=== PATIENT | female | born 1990 | race African-American/Black ===

== ENCOUNTER 2019-02-08 02:50 | Inpatient (IN) | payer BC, OTHER ==
[2019-02-08 04:28] LABS: INR 0.93 (0.83-1.09)
[2019-02-08 04:31] LABS: ACTIVATED PTT 27.3 SECONDS (25.2-36.5)
[2019-02-08 04:33] VITALS: BMI 37.9
[2019-02-08 04:39] LABS: BLOOD UREA NITROGEN 6.3 mg/dL (7-18); CREATININE 0.5 mg/dL (0.55-1.3); POTASSIUM 3.9 mmol/L (3.5-5.1)
[2019-02-08] MEDS ORDERED: FENTANYL/BUPIVACAINE/NS/PF - PCEA - 50 ML DISP.SYRIN EP ONE ×2 (04:49→09:28)
[2019-02-08] MEDS ORDERED: OXYTOCIN 20 UNITS in 0.9% NS 20 UNIT/1,000 ML INFUS.BAG IV ONE ×2 (04:59→12:05)
[2019-02-08] MEDS ORDERED: ELECTROLYTE-148 SOLN 1,000 ML IV SCH (05:15)
[2019-02-08 05:21] LABS: BASO % 0.1 % (0-2.0); EOS % 0.1 % (0-4.5); HEMATOCRIT 39.4 % (32.4-45.2); HEMOGLOBIN 13.3 GM/dL (10.7-15.3); LYMPH % 16.1 % (8-40); MCH 29.8 pg (25.7-33.7); MCHC 33.9 g/dl (32.0-36.0); MEAN CELL VOLUME 87.9 fl (80-96); MEAN PLT VOLUME 7.7 fl (7.5-11.1); MONO % 7.1 % (3.8-10.2); NEUT % 76.6 % (42.8-82.8); PLATELET COUNT 196 K/MM3 (134-434); RBC 4.48 M/mm3 (3.60-5.2); RDW 14.1 % (11.6-15.6); WHITE BLOOD COUNT 6.7 K/mm3 (4.0-10.0)
[2019-02-08] MEDS ORDERED: LIDO 2%/EPI 1:200000 PRESRVFRE (20 ML SDVIAL) ONE ×2 (05:28→06:17)
[2019-02-08] MEDS ORDERED: NALOXONE HCL 0.4 MG/ML VIAL IVPUSH PRN (05:49)
[2019-02-08] MEDS ORDERED: FENTANYL/BUPIVACAINE/NS/PF - PCEA - 50 ML DISP.SYRIN EP SCH (06:00)
[2019-02-08] MEDS ORDERED: BUPIVACAINE HCL/PF 2.5 MG/ML - 30 ML VIAL IJ ONE ×2 (06:38→08:49)
--- NOTE | 2019-02-08 07:07 | HP ---
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: Alzheimer's, CVA, Dementia, Migraine, Multiple Sclerosis, Peripheral Neuropathy, Parkinson's, Seizure, Syncope, TIA, Vertigo, Other Cardiovascular: No: AFIB, Aneurysm, Aortic Insufficiency, Aortic Stenosis, CAD, CHF, Deep Vein Thrombosis, HTN, Hyperlipdemia, DC, Mitral Insufficiency, Mitral Stenosis, Murmur, Pulmonary Hypertension, Other Pulmonary: No: Asthma, Bronchitis, Cancer, COPD, O2 Dependent, Pneumonia, Previously Intubated, Pulmonary Embolus, Pulmonary Fibrosis, Sleep Apnea, Other Gastrointestinal: No: Ascites, Cancer, Constipation, Crohn's Disease, Diverticulitis, Diverticulosis, Esophageal Varices, Gastritis, GERD, GI Bleed, Hemorrhoids, Hiatal Hernia, Inflamatory Bowel Disease, Irritable Bowel Disease, Pancreatitis, Peptic Ulcer Disease, Ulcerative Colitis, Other Hepatobiliary: No: Cirrhosis, Cholelithiasis, Cholecystitis, Choledocholithiasis , Hepatitis A, Hepatitis B, Hepatitis C, Other Renal/: No: Renal Failure, Renal Inusuff, BPH, Cancer, Hematuria, Hemodialysis , Neurogenic Bladder, Renal Calculi, UTI, Other Reproductive: No: Ectopic , Endometriosis, Fibroids, PID, Polycystic Ovary Syndrome, Postmenopausal, Other ...: 2 ...Para: 1 ...Term: 1 ... Weeks Gestation by Dates: 39 ...EDC by Sono: 02/09/19 Heme/Onc: No: Anemia, B12 Deficiency, Bleeding Disorder, Cancer, Current Chemotherapy, Current Radiation Therapy, Hemochromatosis, Hypercoaguable State, Myeloproliferative Synd, Sickle Cell Disease, Sickle Cell Trait, Thrombocytopenia, Other Psych: No: Addictions, Anxiety, Bipolar, Depression, Panic, Psychosis, Schizophrenia, Other Musculoskeletal: No: Bursitis, Chronic low back pain, Hemiparesis, Hemiplegia, Osteoarthritis, Paraplegia, Other Rheumatology: No: Fibromyalgia, Gout, Lupus, Rheumatoid Arthritis, Sarcoidosis, Vasculitis, Other ENT: No: Allergic Rhinitis, Sinusitis, Other Endocrine: No: Yossi's Disease, Houston's Disease, Diabetes Insipidus, Diabetes Mellitus, Hyperparathyroidism, Hyperthyroidism, Hypothyroidism, Osteopenia, SIADH, Other Dermatology: No: Basal Cell, Cellulitis, Eczema, Melanoma, Psoriasis, Squamous Cell, Other - Past Surgical History Past Surgical History: No: None, AAA Repair, AICD, Amputation, Appendectomy, Arthrosocopy, AV Fistula/Graft, Bariatric Surgery, Breast Biopsy, Bypass, CABG, Carotid Endarterectomy, Cataract Removal, Cholecystectomy, Colectomy, Colonoscopy, Colostomy, Craniotomy, , Cystectomy, Hernia Repair, Hysterectomy, Ileal Conduit, Ileosotomy, Joint Replacement, Kidney Transplant, Laminectomy, Liver Transplant, Mastectomy, Nephrectomy, Oopherectomy, Orchiectomy, Permanent Pacemaker, Prostatectomy, Splenectomy, Stent, Thoracotomy , TURP, Tonsillectomy, Tubal Ligation, Upper Endoscopy, Valve Replacement, Vasectomy, Vein Stripping/Ligation Hx Myomectomy: No Hx Transabdominal Cerclage: No - Advance Directives Advance Directives: No: Living Will, Health Care Proxy, DNR, Organ Donor, Tissue Donor, MOLST - Smoking History Smoking history: Never smoked Have you smoked in the past 12 months: No - Alcohol/Substance Use Hx Alcohol Use: No History of Substance Use: reports: None - Social History Usual Living Arrangement: Yes: Alone Do you think of yourself as: Straight/Heterosexual ADL: Independent History of Recent Travel: No Home Medications - Allergies Allergies/Adverse Reactions: Allergies Allergy/AdvReac Type Severity Reaction Status Date / Time No Known Allergies Allergy Verified 02/08/19 04:09 - Home Medications Home Medications: Ambulatory Orders Pnv No.95/Ferrous Fum/Folic AC [ Vitamin Tablet] 1 each PO DAILY Family Medical History Family History: Denies Review of Systems - Review of Systems Constitutional: reports: No Symptoms Eyes: reports: No Symptoms HENT: reports: No Symptoms Neck: reports: No Symptoms Cardiovascular: reports: No Symptoms Respiratory: reports: No Symptoms Gastrointestinal: reports: No Symptoms Genitourinary: reports: No Symptoms Breasts: reports: No Symptoms Reported Musculoskeletal: reports: No Symptoms Integumentary: reports: No Symptoms Neurological: reports: No Symptoms Endocrine: reports: No Symptoms Hematology/Lymphatic: reports: No Symptoms Psychiatric: reports: No Symptoms Physical Exam - Maternity Vital Signs: Vital Signs Temperature 98.5 F 02/08/19 03:00 Pulse Rate 113 H 02/08/19 06:25 Respiratory Rate 18 02/08/19 06:25 Blood Pressure 159/86 02/08/19 06:25 O2 Sat by Pulse Oximetry (%) 99 02/08/19 06:25 Constitutional: Yes: Well Nourished, No Distress, Calm Eyes: Yes: WNL, Conjunctiva Clear, EOM Intact HENT: Yes: WNL, Atraumatic, Normocephalic Neck: Yes: WNL, Supple, Trachea Midline Cardiovascular: Yes: WNL, Regular Rate and Rhythm Lungs: Clear to auscultation Breast(s): Yes: WNL - Abdominal Exam/OB Fundal Height: 42 Number of Fetuses: Single Presentation: Vertex Contractions: Yes Regularity: Regular Intensity: Mod/Strong Monitor Mode: External Heart Rate Location: [facility] Category: I Accelerations: Uniform Decelerations: None - Vaginal Exam/OB Vaginal Bleediing: No Speculum Exam: No Dilatation (cm): 5 Effacement (%): 70 Amniotic Membrane Status: Bulging Amniotic Fluid: Yes: Meconium Stained Meconium: Thick Presentation: Vertex/Position Station: -3 - Physical Exam Musculoskeletal: Yes: WNL Extremities: Yes: WNL Edema: Yes Edema: LUE: 1+, RUE: 1+, LLE: 1+, RLE: 1+ Integumentary: Yes: WNL Deep Tendon Reflex Grade: Normal +2 ...Motor Strength: WNL Psychiatric: Yes: WNL, Alert, Oriented - Labs Lab Results: CBC, BMP 02/08/19 03:40 02/08/19 03:40 Assessment/Plan thick meconium, in acive labor, asking for epidural, uc q 3 min
--- NOTE | 2019-02-08 07:09 | PN ---
Progress Note (short form) - Note Progress Note: 530 cm , same cervix, 6 cm, 70%, -3, thick meconiu, epidural going in , reactive nst
--- NOTE | 2019-02-08 07:10 | PN ---
Progress Note (short form) - Note Progress Note: 7 am , 6 to 7 cm, -3, 70 %, thick meconium, uc q 3 min , nst reactive , continue laboring
[2019-02-08] MEDS ORDERED: OXYTOCIN 30 UNITS in 0.9% NS 30 UNIT/500 ML INFUS.BAG IVPB SCH (07:15)
[2019-02-08] MEDS ORDERED: CITRIC ACID/SODIUM CITRATE 30 ML UNIT-DOSE CUP PO ONE (09:55)
--- NOTE | 2019-02-08 09:55 | PN ---
Progress Note (short form) - Note Progress Note: 940 am, still 7 cm, -3, 70%, no change for 3 and half hrs, nst reactive, for c s
[2019-02-08] MEDS ORDERED: METHYLERGONOVINE MALEATE 0.2 MG/1 ML AMP IM PRN (10:03)
[2019-02-08] MEDS ORDERED: IBUPROFEN 800 MG/8 ML IJ IVPB PRN (10:03)
[2019-02-08] MEDS ORDERED: OXYTOCIN 20 UNITS in 0.9% NS 20 UNIT/1,000 ML INFUS.BAG IV SCH (10:15)
[2019-02-08] MEDS ORDERED: ceFAZolin SODIUM 1 GM VIAL ONE (10:38)
[2019-02-08] MEDS ORDERED: LIDOCAINE HCL 1% PRESERVATIVE FREE - 30ML VIAL ONE (11:00)
[2019-02-08] MEDS ORDERED: MIDAZOLAM HCL 2 MG/2 ML SINGLE DOSE VIAL ONE (11:05)
[2019-02-08] MEDS ORDERED: morphine SULFATE/PF 0.5 MG/ML (2cc Syringe - QUVA) ONE ×2 (11:06→11:52)
[2019-02-08] MEDS ORDERED: KETAMINE HCL 500 MG/10 ML VIAL ONE (11:27)
[2019-02-08] MEDS ORDERED: morphine SULFATE/PF 0.5 MG/ML (2cc Syringe - QUVA) EP ONE (12:00)
--- NOTE | 2019-02-08 12:25 | PN ---
Progress Note (short form) - Note Progress Note: I assisted Dr. Malcolm at primary c/section for the entirety of the case.
[2019-02-08] MEDS ORDERED: ONDANSETRON 4 MG/2 ML VIAL IVPUSH PRN (13:26)
--- NOTE | 2019-02-08 20:30 | OP ---
Operative Note - Note: Operative Date: 02/08/19 Pre-Operative Diagnosis: f t progress, op, thick meconium , r/o macrosomia Operation: primary lt c s Findings: op , same, Post-Operative Diagnosis: Same as Pre-op Surgeon: Melchor Malcolm Crew Foreman: Juan Antonio Macias Anesthesiologist/RENTAL SALES AGENT: Miriam Rose MD Anesthesia: Epidural Specimens Removed: placenta Estimated Blood Loss (mls): 900 (local and propofal given ) Operative Report Dictated: Yes
--- NOTE | 2019-02-09 06:06 | PN ---
Post Progress Note Post Day: 1 Type of Delivery: Primary C/S Vital Signs: Vital Signs Temperature 98 F 02/09/19 01:44 Pulse Rate 102 H 02/09/19 01:44 Respiratory Rate 18 02/09/19 05:00 Blood Pressure 129/73 02/09/19 01:44 O2 Sat by Pulse Oximetry (%) 97 02/08/19 13:50 Breast Exam: Yes: Soft Uterus: Yes: Fundus Firm Incision: Yes: Dressing dry and intact, Sutures intact Abdomen/GI: Yes: Abdomen soft, Passing flatus, Tolerating PO Lochia: Yes: Serosa Lochia, amount: Small Extremities: Yes: Calves non-tender Perineum: Yes: Intact Activity: Ambulating (no complaints of pain, vss,) - Labs Labs: CBC WBC 6.7 K/mm3 (4.0-10.0) 02/08/19 03:40 RBC 4.48 M/mm3 (3.60-5.2) 02/08/19 03:40 Hgb 13.3 GM/dL (10.7-15.3) 02/08/19 03:40 Hct 39.4 % (32.4-45.2) 02/08/19 03:40 MCV 87.9 fl (80-96) 02/08/19 03:40 MCH 29.8 pg (25.7-33.7) 02/08/19 03:40 MCHC 33.9 g/dl (32.0-36.0) 02/08/19 03:40 RDW 14.1 % (11.6-15.6) 02/08/19 03:40 Plt Count 196 K/MM3 (134-434) 02/08/19 03:40 MPV 7.7 fl (7.5-11.1) 02/08/19 03:40 Absolute Neuts (auto) 5.2 K/mm3 (1.5-8.0) 02/08/19 03:40 Neutrophils % 76.6 % (42.8-82.8) 02/08/19 03:40 Lymphocytes % 16.1 % (8-40) 02/08/19 03:40 Monocytes % 7.1 % (3.8-10.2) 02/08/19 03:40 Eosinophils % 0.1 % (0-4.5) 02/08/19 03:40 Basophils % 0.1 % (0-2.0) 02/08/19 03:40 Nucleated RBC % 0 % (0-0) 02/08/19 03:40 Assessment/Plan oob,
[2019-02-09] MEDS: ACETAMINOPHEN 325 MG TABLET (FP) PO PRN (08:08)
[2019-02-09] MEDS: oxyCODONE HCL 5 MG TABLET PO PRN ×4 (08:17→19:31)
[2019-02-09 08:52] LABS: BASO % 0.1 % (0-2.0); HEMATOCRIT 29.1 % (32.4-45.2); HEMOGLOBIN 9.7 GM/dL (10.7-15.3); LYMPH % 10.5 % (8-40); MCH 29.5 pg (25.7-33.7); MCHC 33.5 g/dl (32.0-36.0); MEAN CELL VOLUME 88.2 fl (80-96); MEAN PLT VOLUME 7.2 fl (7.5-11.1); MONO % 8.8 % (3.8-10.2); NEUT % 80.6 % (42.8-82.8); PLATELET COUNT 159 K/MM3 (134-434); WHITE BLOOD COUNT 12.9 K/mm3 (4.0-10.0)
[2019-02-09] MEDS ORDERED: BISACODYL 10 MG SUPP.RECT RC PRN (10:03)
[2019-02-09] MEDS: ENOXAPARIN NA (PORCINE) 40 MG/0.4 ML DISP.SYRIN SQ SCH (10:15)
--- NOTE | 2019-02-09 10:24 | PN ---
Progress Note (short form) - Note Progress Note: Anesthesia Post Op Note Pt s/p epidural for labor used for c/section Pt awake alert denies n/v; h/a Ambulating well, max in situ Pain well controlled VSS no apparent anesthesia complications Suzy Munoz.
--- NOTE | 2019-02-09 10:51 | OP ---
DATE OF OPERATION: 02/08/2019 PREOPERATIVE DIAGNOSIS: Failure to progress, OP presentation, thick meconium, rule out macrosomia. POSTOPERATIVE DIAGNOSIS: OP presentation, thick meconium. PROCEDURE: Primary low transverse section. SURGEON: Melchor Malcolm MD HYDRAULIC JACK MECHANIC: Juan Antonio Macias MD ANESTHESIA: Epidural anesthesia and IV sedation with Miriam Rose MD PATHOLOGY: Placenta. BLOOD LOSS: About 900 mL. INDICATIONS: This is a 28-year-old female patient multiparity 2nd baby 39 weeks 4 days who came into the hospital in active labor. Patient was found to be 5-6 cm, bulging membranes, so the patient was admitted and the patient was admitted around 3 o'clock. Patient finally got her epidural. She wanted an epidural around 5 o'clock. First epidural did not work. Epidural was re-done, which was started working. Second epidural was working. Artificial rupture of membranes was done around 5:30, which has thick meconium. The patient at that time still 5-6 cm. Patient came in at 3 o'clock at 5-6 cm so no change. So around 7:30, patient had an epidural already for 2 hours. Patient's cervix still remained about 7 cm, head still high, -3. About 9:30-9:45, patient still remained about 6- to 7-cm cervix, still with thick meconium, and position still very high. Patient had also received Pitocin for about 2-3 hours, so no change of her cervix. Patient's BMI is 37.9 so fetus appeared to be more than 8 pounds in size, so macrosomia was also entertained. With above indications, failure to progress, and possible macromastia and thick meconium, and patient was taken to the OR for failure to progress for primary low transverse section. DESCRIPTION OF PROCEDURE: Patient was taken to the OR. Patient had already had an epidural so patient had epidural topped off, and it appeared to work; however, after the incision, right side abdomen was working but left side patient felt a lot of pain followed the incision and surgery, so patient received sedation by anesthesiologist during the C section throughout the procedure. Patient was in pain. Incision was made through the skin and subcutaneous tissue until the fascia was nicked in the midline. The fascia was also injected with lidocaine because the patient has pain, so lidocaine was injected in the fascia for the pain reasons, and after that, peritoneum was entered. No bladder was created. Baby delivered in OP presentation. Baby was handed over to pulper after umbilical cord doubly clamped and cut, and placenta was removed. Uterus was closed in single layer, 1st with interlocking Vicryl sutures good hemostasis. Both ovaries appeared to be very polycystic ovary looking, enlarged. No large cysts but polycystic looking. Both tubes were normal, and the uterus with no fibroid. Meconium was evacuated by the pulper from the baby. Uterus then closed in single layer. Good hemostasis. We placed uterus into the abdominal cavity again with both gutters were clean. No bleeding. Good hemostasis. Peritoneum was closed. Fascia was closed. Skin was closed. Transferred to recovery room in stable condition draining clear urine. Patient went to recovery room in stable condition. MD LEO MARLOW/[id number]
[2019-02-09] MEDS: IBUPROFEN 600 MG TABLET (FP) PO PRN ×2 (14:29→19:31)
[2019-02-09] MEDS: SIMETHICONE 80 MG TAB.CHEW (FP) PO PRN (19:31)
[2019-02-09] MEDS: SENNOSIDES/DOCUSATE COMBO (SENNA PLUS) TABLET (UD) PO PRN (19:32)
[2019-02-10] MEDS: oxyCODONE HCL 5 MG TABLET PO PRN ×2 (04:28→10:33)
[2019-02-10] MEDS: IBUPROFEN 600 MG TABLET (FP) PO PRN ×4 (04:28→19:15)
[2019-02-10] MEDS: SIMETHICONE 80 MG TAB.CHEW (FP) PO PRN ×4 (04:31→19:17)
[2019-02-10] MEDS: ENOXAPARIN NA (PORCINE) 40 MG/0.4 ML DISP.SYRIN SQ SCH (10:35)
[2019-02-10] MEDS: ACETAMINOPHEN 325 MG TABLET (FP) PO PRN ×2 (15:34→19:16)
--- NOTE | 2019-02-10 16:13 | PN ---
Post Progress Note Post Day: 2 Type of Delivery: Primary C/S Vital Signs: Vital Signs Temperature 98.0 F 02/10/19 10:00 Pulse Rate 100 H 02/10/19 10:00 Respiratory Rate 17 02/10/19 10:00 Blood Pressure 128/77 02/10/19 10:00 O2 Sat by Pulse Oximetry (%) 97 02/08/19 13:50 Breast Exam: Yes: Soft Uterus: Yes: Fundus Firm, Fundus below umbilicus Incision: Yes: Dressing dry and intact, Sutures intact Abdomen/GI: Yes: Abdomen soft, Passing flatus, Tolerating PO Lochia: Yes: Serosa Lochia, amount: Small Extremities: Yes: Calves non-tender Perineum: Yes: Intact Activity: Ambulating (doing well, dc pt home tomorrow ) - Labs Labs: CBC WBC 12.9 K/mm3 (4.0-10.0) H 02/09/19 08:05 RBC 3.30 M/mm3 (3.60-5.2) L 02/09/19 08:05 Hgb 9.7 GM/dL (10.7-15.3) L 02/09/19 08:05 Hct 29.1 % (32.4-45.2) L D 02/09/19 08:05 MCV 88.2 fl (80-96) 02/09/19 08:05 MCH 29.5 pg (25.7-33.7) 02/09/19 08:05 MCHC 33.5 g/dl (32.0-36.0) 02/09/19 08:05 RDW 14.0 % (11.6-15.6) 02/09/19 08:05 Plt Count 159 K/MM3 (134-434) 02/09/19 08:05 MPV 7.2 fl (7.5-11.1) L 02/09/19 08:05 Absolute Neuts (auto) 10.4 K/mm3 (1.5-8.0) H 02/09/19 08:05 Neutrophils % 80.6 % (42.8-82.8) 02/09/19 08:05 Lymphocytes % 10.5 % (8-40) D 02/09/19 08:05 Monocytes % 8.8 % (3.8-10.2) 02/09/19 08:05 Eosinophils % 0.0 % (0-4.5) D 02/09/19 08:05 Basophils % 0.1 % (0-2.0) 02/09/19 08:05 Nucleated RBC % 0 % (0-0) 02/09/19 08:05
--- NOTE | 2019-02-10 16:16 | DS ---
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 Signs: Vital Signs Temperature 98.0 F 02/10/19 10:00 Pulse Rate 100 H 02/10/19 10:00 Respiratory Rate 17 02/10/19 10:00 Blood Pressure 128/77 02/10/19 10:00 O2 Sat by Pulse Oximetry (%) 97 02/08/19 13:50 Constitutional: Yes: Well Nourished, No Distress, Calm Eyes: Yes: WNL, Conjunctiva Clear, EOM Intact HENT: Yes: WNL, Atraumatic, Normocephalic Neck: Yes: WNL, Supple, Trachea Midline Cardiovascular: Yes: WNL, Regular Rate and Rhythm Respiratory: Yes: WNL, Regular, CTA Bilaterally Gastrointestinal: Yes: WNL, Normal Bowel Sounds, Soft ...Rectal Exam: Yes: WNL Renal/: Yes: WNL Pelvis: Yes: WNL External Genitalia: Yes: Normal Internal Exam Deferred: No Vaginal Exam: Yes: Normal Cervix: Yes: Normal Uterus: Yes: Normal Adnexa: Normal: Bilateral ....Post : Yes: Uterus firm, Uterus non-tender Breast(s): Yes: WNL Musculoskeletal: Yes: WNL Extremities: Yes: WNL Edema: Yes Edema: LUE: 1+, RUE: 1+, LLE: 1+, RLE: 1+ Integumentary: Yes: WNL Wound/Incision: Yes: Clean/Dry, Well Approximated, Excoriated Neurological: Yes: WNL, Alert, Oriented ...Motor Strength: WNL Psychiatric: Yes: WNL, Alert, Oriented Labs: CBC, BMP 02/09/19 08:05 02/08/19 03:40 Delivery - Delivery Section: Primary Type of Anesthesia: Local, Epidural Episiotomy/Laceration: None EBL (cc): 900 Delivery, Single - Stages of Labor Date 1st Stage Initiatied: 02/08/19 Time 1st Stage Initiated: 04:00 Date of Delivery: 02/08/19 Time of Delivery: 11:09 Time Placenta Delivered: 11:10 - Condition of Bmx Rider/Community Association Manager Present: Yes Name: Mayte Salgado Infant Gender: Male Weight: 3.77 kg Position: OP Total Hours ROM (Hrs/Mins): 5H55M - 1 Minute Total Score: 9 5 Minutes Total Score: 9 - [place] Feeding Plan Initial Plan: Exclusive throughout hospitalization Discharge Summary Problems reviewed: Yes Reason For Visit: LABOR ADMIT Procedures: Principal: primary lt c s Other Procedures: none Hospital Course: uneventful Health Concerns: none Plan of Treatment: oob as much as possible Goals: return to work in 8 weeks Condition: Good - Instructions Diet, Activity, Other Instructions: regular , routine post vc s care Disposition: HOME - Home Medications Comprehensive Discharge Medication List: Ambulatory Orders Pnv No.95/Ferrous Fum/Folic AC [ Vitamin Tablet] 1 each PO DAILY
[2019-02-10] MEDS: SENNOSIDES/DOCUSATE COMBO (SENNA PLUS) TABLET (UD) PO PRN (21:02)
[2019-02-11] MEDS: IBUPROFEN 600 MG TABLET (FP) PO PRN ×3 (02:54→16:16)
[2019-02-11] MEDS: ACETAMINOPHEN 325 MG TABLET (FP) PO PRN ×3 (02:55→16:16)
[2019-02-11] MEDS: SIMETHICONE 80 MG TAB.CHEW (FP) PO PRN ×2 (02:55→16:17)
[2019-02-11 07:59] VITALS: BP 125/74; PULSE 91; TEMP 97.7
[2019-02-11 08:11] LABS: BASO % 0.3 % (0-2.0); EOS % 0.4 % (0-4.5); HEMATOCRIT 28.6 % (32.4-45.2); HEMOGLOBIN 9.6 GM/dL (10.7-15.3); LYMPH % 21.5 % (8-40); MCH 29.7 pg (25.7-33.7); MCHC 33.4 g/dl (32.0-36.0); MEAN CELL VOLUME 88.9 fl (80-96); NEUT % 70.8 % (42.8-82.8); PLATELET COUNT 189 K/MM3 (134-434); RBC 3.22 M/mm3 (3.60-5.2); RDW 13.8 % (11.6-15.6); WHITE BLOOD COUNT 5.6 K/mm3 (4.0-10.0)
[2019-02-11] MEDS: ENOXAPARIN NA (PORCINE) 40 MG/0.4 ML DISP.SYRIN SQ SCH (09:28)
--- NOTE | 2019-02-13 16:15 | PATH ---
Surgical Pathology Report Patient Name: CHIKA GARDNER Med. Rec. 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 Electronically Signed Yudi Grullon M.D. Gross Description The specimen is received fresh labeled placenta and is a 637 gram, 18.5 x 17.5 x 2.6 cm. placenta with attached membranes and umbilical cord. The attached membranes are barraza, translucent with focal opacities and insert marginally. The umbilical cord measures 38 cm. in length and averages 1 cm. in diameter. The cord inserts eccentrically, 5 cm. to the nearest margin. No true knots or strictures are identified. Cut surface of the umbilical cord reveals 3 vessels. The surface is evans blue with moderate fibrin deposition and appropriate caliber vessels. The maternal surface is red-brown with focal defects. Sectioning reveals red-brown, spongy parenchyma. No lesions are identified. Video Game Tester sections are submitted in three cassettes as follows: 1- membrane rolls and umbilical cord; 2-3- full thickness sections of placenta. /02/10/2019 [facility]02/10/2019
== END 2019-02-11 17:50 | disposition home or self-care (01) | DRG 788 ==
LOC: JLDR 02:50 → J3W 13:40
PROVIDERS: ADMIT Obstetrics & Gynecology; ATTEND Obstetrics & Gynecology
PROC: 10D00Z1 Extraction of Products of Conception, Low, Open Approach (ICD-10-PCS; principal; 2019-02-08)
DX: O62.1 Secondary uterine inertia (principal); Z3A.39 39 weeks gestation of pregnancy; Z37.0 Single live birth
CPT/HCPCS: 36415; 80048; 85025; 85610; 85730; 86593; 86850; 86900; 86901; 87389; 88307-TC

== ENCOUNTER 2020-04-27 02:25 | Inpatient (IN) | payer BC, OTHER ==
[2020-04-27] MEDS ORDERED: AMPICILLIN SODIUM 2 GM VIAL ONE (03:06)
[2020-04-27 03:16] LABS: BASO % 0.4 % (0-2.0); HEMATOCRIT 41.3 % (32.4-45.2); HEMOGLOBIN 13.9 GM/dL (10.7-15.3); LYMPH % 9.4 % (8-40); MCH 30.1 pg (25.7-33.7); MCHC 33.8 g/dl (32.0-36.0); MEAN CELL VOLUME 89.2 fl (80-96); MONO % 8.1 % (3.8-10.2); NEUT % 82.1 % (42.8-82.8); PLATELET COUNT 193 K/MM3 (134-434); RBC 4.63 M/mm3 (3.60-5.2); RDW 13.7 % (11.6-15.6); WHITE BLOOD COUNT 13.7 K/mm3 (4.0-10.0)
[2020-04-27 03:35] LABS: CALCIUM 9.2 mg/dL (8.5-10.1); POTASSIUM 3.6 mmol/L (3.5-5.1)
[2020-04-27 03:37] LABS: BLOOD UREA NITROGEN 5.8 mg/dL (7-18)
[2020-04-27 03:40] LABS: CREATININE 0.6 mg/dL (0.55-1.3)
[2020-04-27] MEDS ORDERED: OXYTOCIN 10 UNITS/ML VIAL ONE (03:42)
[2020-04-27] MEDS ORDERED: OXYTOCIN 20 UNITS in 0.9% NS 20 UNIT/1,000 ML INFUS.BAG IV ONE ×2 (03:52→05:07)
[2020-04-27] MEDS ORDERED: oxyCODONE HCL 5 MG TABLET PO PRN (03:57)
[2020-04-27] MEDS ORDERED: BISACODYL 10 MG SUPP.RECT RC PRN (03:57)
[2020-04-27] MEDS ORDERED: BENZOCAINE 28 GM HEMORRHOIDAL OINTMENT TP PRN (03:57)
[2020-04-27] MEDS ORDERED: METHYLERGONOVINE MALEATE 0.2 MG/1 ML AMP IM PRN (03:57)
[2020-04-27] MEDS ORDERED: WITCH HAZEL 50% (TUCKS) 40 PAD/JAR PAD TP PRN (03:57)
[2020-04-27] MEDS ORDERED: BENZOCAINE 20% 57 GM BOTTLE TP PRN (03:57)
[2020-04-27 03:59] LABS: INR 0.99 (0.83-1.09)
[2020-04-27] MEDS ORDERED: ELECTROLYTE-148 SOLN 1,000 ML IV SCH (04:00)
[2020-04-27] MEDS ORDERED: OXYTOCIN 20 UNITS in 0.9% NS 20 UNIT/1,000 ML INFUS.BAG IV SCH (04:00)
[2020-04-27] MEDS ORDERED: OXYTOCIN 10 UNITS/ML VIAL IM ONE (04:00)
[2020-04-27 04:01] LABS: ACTIVATED PTT 27.3 SECONDS (25.2-36.5)
[2020-04-27 04:24] VITALS: BMI 38.0
[2020-04-27 04:31] LABS: HIV INTERPRETATION NEGATIVE (NEGATIVE)
[2020-04-27] MEDS ORDERED: ACETAMINOPHEN 325 MG TABLET (FP) ONE (05:13)
[2020-04-27] MEDS ORDERED: IBUPROFEN 600 MG TABLET (FP) PO ONE (05:13)
[2020-04-27] MEDS: IBUPROFEN 600 MG TABLET (FP) PO PRN ×3 (05:15→19:37)
[2020-04-27] MEDS: ACETAMINOPHEN 325 MG TABLET (FP) PO PRN ×3 (05:15→19:36)
[2020-04-27] MEDS: PRENATAL VITAMINS W/ FOLIC ACID TABLET (FP) PO SCH (10:04)
[2020-04-28] MEDS: PRENATAL VITAMINS W/ FOLIC ACID TABLET (FP) PO SCH (09:27)
[2020-04-28 10:22] LABS: BASO % 0.4 % (0-2.0); EOS % 0.3 % (0-4.5); HEMATOCRIT 32.3 % (32.4-45.2); LYMPH % 22.2 % (8-40); MCH 30.5 pg (25.7-33.7); MEAN CELL VOLUME 89.7 fl (80-96); MEAN PLT VOLUME 6.6 fl (7.5-11.1); MONO % 6.9 % (3.8-10.2); NEUT % 70.2 % (42.8-82.8); PLATELET COUNT 147 K/MM3 (134-434); RBC 3.61 M/mm3 (3.60-5.2); RDW 13.6 % (11.6-15.6); WHITE BLOOD COUNT 7.5 K/mm3 (4.0-10.0)
[2020-04-28] MEDS: ACETAMINOPHEN 325 MG TABLET (FP) PO PRN (16:31)
[2020-04-28] MEDS: IBUPROFEN 600 MG TABLET (FP) PO PRN (16:32)
[2020-04-28] MEDS ORDERED: SENNOSIDES/DOCUSATE COMBO (SENNA PLUS) TABLET (UD) PO PRN (22:00)
[2020-04-29] MEDS: PRENATAL VITAMINS W/ FOLIC ACID TABLET (FP) PO SCH (10:54)
[2020-04-29 12:40] VITALS: BP 123/74; PULSE 91; TEMP 98.6
[2020-04-30 07:49] LABS: POC NITRAZINE NEG
== END 2020-04-29 14:20 | disposition home or self-care (01) | DRG 807 ==
LOC: JLDR 02:25 → J3W 05:22
PROVIDERS: ADMIT Obstetrics & Gynecology; ATTEND Obstetrics & Gynecology
PROC: 10E0XZZ Delivery of Products of Conception, External Approach (ICD-10-PCS; principal; 2020-04-27)
DX: O34.219 Maternal care for unspecified type scar from previous cesarean delivery (principal); Z37.0 Single live birth; O69.1XX0 Labor and delivery complicated by cord around neck, with compression, not applicable or unspecified; Z3A.37 37 weeks gestation of pregnancy
CPT/HCPCS: 36415; 59409; 80048; 83986-QW; 85025; 85610; 85730; 86780; 86850; 86900; 86901; 87389; C9803; U0003